=== PATIENT | male | born 1985 | race Caucasian/White ===

== ENCOUNTER → 2020-07-27 | Outpatient (CLI) | payer OTHER | LOC: KOH-I 14:24 | DX: S99.911A Unspecified injury of right ankle, initial encounter (principal); S92.024A Nondisplaced fracture of anterior process of right calcaneus, initial encounter for closed fracture; W19.XXXA Unspecified fall, initial encounter | CPT/HCPCS: 73610; 73630 ==

== ENCOUNTER → 2020-08-05 | Outpatient (CLI) | payer OTHER | LOC: KOH-I 08-04 13:30 | DX: S92.021A Displaced fracture of anterior process of right calcaneus, initial encounter for closed fracture (principal); X58.XXXA Exposure to other specified factors, initial encounter | CPT/HCPCS: 73700 ==

== ENCOUNTER → 2020-09-02 | Outpatient (CLI) | payer OTHER | LOC: KOH-I 16:02 | DX: S92.021A Displaced fracture of anterior process of right calcaneus, initial encounter for closed fracture (principal) | CPT/HCPCS: 73610; 73650 ==

== ENCOUNTER → 2020-09-21 | Outpatient (CLI) | payer OTHER | LOC: KOH-I 14:30 | DX: S92.021A Displaced fracture of anterior process of right calcaneus, initial encounter for closed fracture (principal); S93.491A Sprain of other ligament of right ankle, initial encounter; R93.6 Abnormal findings on diagnostic imaging of limbs; W19.XXXA Unspecified fall, initial encounter | CPT/HCPCS: 73721 ==